=== PATIENT | female | born 1990 | race Caucasian/White ===

== ENCOUNTER 2020-09-24 08:30 | Outpatient (RCR) | payer BC, SELFPAY | END 2020-09-24 23:59 | LOC: DC 08:30 | PROVIDERS: Visit Provider Nurse Practitioner Family | DX: Z71.3 Dietary counseling and surveillance (principal); O24.410 Gestational diabetes mellitus in pregnancy, diet controlled; Z3A.00 Weeks of gestation of pregnancy not specified; O99.210 Obesity complicating pregnancy, unspecified trimester | CPT/HCPCS: 97802; G0108 ==

== ENCOUNTER 2020-10-10 11:00 | Outpatient (RCR) | payer BC, SELFPAY | END 2020-10-25 23:59 | LOC: DC 11:00 | PROVIDERS: Visit Provider Nurse Practitioner Family | DX: Z71.3 Dietary counseling and surveillance (principal); O24.410 Gestational diabetes mellitus in pregnancy, diet controlled; Z3A.00 Weeks of gestation of pregnancy not specified ==

== ENCOUNTER 2020-11-01 11:45 | Outpatient (RCR) | payer BC, SELFPAY | END 2020-11-01 23:59 | disposition home or self-care (01) | LOC: DC 11:45 | PROVIDERS: Visit Provider Nurse Practitioner Family | DX: O24.410 Gestational diabetes mellitus in pregnancy, diet controlled (principal); Z3A.00 Weeks of gestation of pregnancy not specified ==

== ENCOUNTER 2020-11-22 01:56 | Inpatient (IN) | payer BC, SELFPAY ==
[2020-11-22] VITALS (15 sets, daily range): BP systolic 106–135; BP diastolic 54–64; PULSE 69–88; RESP 16–18; TEMP 36.3–36.9; O2SAT 96–98; BMI 34.9
[2020-11-22] MEDS: Oxytocin 10 UNITS/ML Vial IM (02:15)
--- NOTE | 2020-11-22 02:27 | PCM.OPRPT ---
Problem List (1) 38 weeks gestation of Status: Acute (2) GDM, class A2 Status: Acute (3) Precipitous delivery, delivered (current hospitalization) Status: Acute Report of Operation Date of Procedure: 11/22/20 Pre-Operative Diagnosis: Spontaneous active labor, term gestation Post-Operative Diagnosis: same, live female Surgery/Procedure Performed:: Vaginal Delivery Maternal Presentation: Active Labor, Spontaneous Rupture of Membranes Patient is a at 38.0 weeks gestation that arrived to unit in spontaneous active labor. Patient reported leaking fluid, vaginal bleeding and back pain most of the night. Positive movement. Amniotic Membrane Rupture Type: Spontaneous at home Rupture of Membrane time: Unsure Amniotic Fluid Description: Clear Final TISHA: 12/06/20 Gestational age: 38 Weeks and 0 Days Date of Procedure: 11/22/20 Pre-Operative Diagnosis: Term, spontaneous, active labor Post-Operative Diagnosis: precipitous delivery, term live female Surgery/ Procedure Performed: Spontaneous Vaginal Delivery Type of Anesthesia: None Description of Procedure: Patient is a at 38.0 weeks gestation that arrived to unit in spontaneous, active labor with urge to bear down. Patient transferred to bed and began pushing. Precipitous delivery of infant. Vigorous female placed on maternal abdomen and attended to by nursing staff. 3 vessel cord clamped and cut after 2 minutes by FOB. placed skin to skin with patient. Pitocin IM 10 mg X1 given for active management of third stage of labor. Placenta delivered spontaneously and intact. Vagina and perineum intact after inspection. Fundus firm and 1 below U. EBL 200 cc. APGARS 8/9. Patient bonding with infant. Dr. Malik notified of delivery. Presentation: Vertex, MARTÍN Placental Delivery Description: Spontaneous Placenta Disposition: [facility] Cord Vessel Description: 3 Vessels Cord Entanglement: None Estimated Blood Loss: 200 A gender: Female (1 minute): 8 (5 minute): 9 Episiotomy Description: None Laceration: None Medications given after delivery: - - IM pitocin Complications: None
--- NOTE | 2020-11-22 02:39 | PCM.HP.OB ---
- Problem List (1) 38 weeks gestation of Status: Acute (2) GDM, class A2 Status: Acute (3) Precipitous delivery, delivered (current hospitalization) Status: Acute History Date of Admission: 11/22/20 Final TISHA: 12/06/20 Gestational age: 38 Weeks and 0 Days History of this : This is a 30 year-old, G [], P [], at weeks gestational age. Smoking Status: Former smoker Number of Fetus(es): 1 History Past Pregnancies: Past Pregnancies Delivery Date Name GA/ Weeks Outcome Route Wt Infant Sex Labor Length Anesthesia Delivery Location Provider FOB Labs: A+ Rubella- immune HB- neg HC- neg RPR- NR HIV- NR GC/CH- neg GBS- neg but untreated GDM A2- well controlled COVID- 19 unknown Expected Infant Delivery Method: Spontaneous Vaginal Review of Systems Constitutional: Denies: Chills, Fever, Weight Change HEENT: Denies: Head Aches, Sinus Congestion, Sinus Drainage Cardiovascular: Denies: Chest Pain, Palpitations Respiratory: Denies: Cough, Shortness of breath at rest, Sputum production Gastrointestinal: Denies: Abdominal Pain, Nausea, Vomiting Genitourinary: Denies: Dysuria Neurological: Denies: Focal weakness, Numbness, Tingling Physical Exam Vitals: Vital Signs Temp Pulse BP 98.5 F 81 116/61 11/22/20 02:30 11/22/20 02:33 11/22/20 02:33 General: Alert, Oriented x3 HEENT: Atraumatic Cardiovascular: Regular rate Lungs: Normal air movement Abdomen: Soft, Non Tender Neurological: Cranial nerves II-XII grossly intact Assessment/Plan All Active Problems 38 weeks gestation of (Acute) GDM, class A2 (Acute) Precipitous delivery, delivered (current hospitalization) (Acute) This is a 30 year-old, G [3], P [1], at 38.0 weeks gestational age that arrived to unit in spontaneous, active labor. She was completely dilated and bearing down. Admitted to labor and delivery Routine labs Pitocin IM 10 mg x1 after delivery due to no IV access GDM A2- fasting glucose tomorrow GBS- negative but untreated Dr. Malik notified of admission, delivery and is collaborating physician
[2020-11-22 03:12] LABS: Absolute Lymphocyte Count 0.55 X10^3/uL (0.83-4.51); Basophil# 0.03 X10^3/uL; Basophil% 0.2 % (0-1); Eosinophil# 0.01 X10^3/uL; Eosinophils% 0.1 % (0-5); Hematocrit 36.5 % (37-47); Hemoglobin 12.3 g/dL (12.0-15.0); Lymphocyte # 0.55 X10^3/ul (4.0); Lymphocyte % 3.2 % (19-41); Mean Corp Hgb Conc 33.7 g/dL (32-36); Mean Corpuscular Hgb 32.5 pg (27.0-32.0); Mean Corpuscular Volume 96.3 fL (81-99); Mean Platelet Vol. 10.4 fl (6.2-12.0); Monocyte% 3.5 % (0-10); NRBC Flagged by Analyzer 0 % (0-5); Neutrophil # 15.97 X10^3/uL (2.7-7.7); Neutrophil % 92.4 % (47-70); POSITIVE DIFFERENTIAL YES; Platelet Count 172 K/mm3 (150-450); RBC Distribution Width CV 13.3 % (11.6-14.6); RBC Distribution Width SD 47.2 fl (35.1-43.9); Red Blood Count 3.79 M/mm3 (4.2-5.4); White Blood Count 17.3 K/mm3 (4.4-11.0)
[2020-11-22 03:13] LABS: Differential Indicated SCAN CRITERIA MET
[2020-11-22 04:21] LABS: Bedside Glucose 140 mg/dL (70-110)
[2020-11-22] MEDS: Ibuprofen 600 MG Tablet PO ×2 (04:23→18:24)
[2020-11-22 05:31] LABS: Amphetamine Urine VISTA NEGATIVE (<1000 ng/mL); Barbiturate Urine VISTA NEGATIVE (< 200 ng/mL); Benzodiazepine Urine VISTA NEGATIVE (< 200 ng/mL); Cocaine Urine VISTA NEGATIVE (< 300 ng/mL); Ecstacy Urine VISTA NEGATIVE (< 500 ng/mL); Methadone Urine VISTA NEGATIVE (< 300 ng/mL); PCP Urine VISTA NEGATIVE (< 25 ng/mL); THC Urine VISTA NEGATIVE (< 50 ng/mL); Vista UDS pH Range 5
[2020-11-23 02:50] VITALS: BP 110/50; PULSE 78; RESP 16; TEMP 36.8; O2SAT 98
[2020-11-23] MEDS: Ibuprofen 600 MG Tablet PO (04:20)
[2020-11-23 04:26] LABS: Bedside Glucose 76 mg/dL (70-110)
[2020-11-23 08:07] VITALS: BP 104/70; PULSE 68; RESP 16; TEMP 36.3; O2SAT 97
--- NOTE | 2020-11-23 11:31 | PCM.PROGNOTE ---
Patient Problems: Active and Suspected Problems 38 weeks gestation of (Acute) GDM, class A2 (Acute) Precipitous delivery, delivered (current hospitalization) (Acute) Subjective: Doing well per patient and nursing staff. Ambulating and taking p.o. without difficulty. Voiding and had bowel movement no complications. Breast-feeding without any concerns. Denies any chest pain or shortness of breath, leg pain or increased vaginal bleeding. Pain controlled. Discharge home today. - Physical Exam Vitals/I&O's: Vital Signs Temp Pulse Resp BP Pulse Ox 97.3 F L 68 16 104/70 97 11/23/20 08:07 11/23/20 08:07 11/23/20 08:07 11/23/20 08:07 11/23/20 08:07 Oxygen Delivery Method Room Air Weight: 197 lb 8.547 oz Body Mass Index (BMI) 34.9 Intake and Output for Last 24 Hours 11/21/20 11/22/20 11/23/20 23:59 23:59 23:59 Output Total 300 / 300 Balance -300 / -300 General: Alert, Oriented x3, Cooperative HEENT: Atraumatic, Normocephalic Neck: Trachea Midline Lungs: Clear to auscultation, Normal air movement, No rhonchi, No wheeze Cardiovascular: Regular rate, Regular Rhythm, No murmurs Abdomen: Bowel Sounds Present, Soft Extremities: No edema Psych/Mental Status: Normal Affect, Appropriate Laboratory Results 11/23/20 04:22: POC Glucose 76 Current Medications Acetaminophen (Acetaminophen 500 Mg Tablet) 1,000 mg PO Q8H PRN PRN PRN Reason: Pain Score 1-10 Al Hydroxide/Mg Hydroxide (Mag Hydrox/Al Hydrox/Simeth 30 Ml Udc) 15 - 30 ml PO Q4H PRN PRN PRN Reason: INDIGESTION Bisacodyl (Bisacodyl 10 Mg Suppository) 10 mg RECTAL UD PRN PRN Reason: If no BM Citric Acid/Sodium Citrate (Sodium Citrate/Citric Acid 30 Ml Udc) 30 ml PO X1 PRN PRN Reason: Section Dextrose (Dextrose 50%-Water 25 Gm/50 Ml Disp.Syrin) 0 gm IV X1 PRN; Protocol PRN Reason: Hypoglycemia Dibucaine (Dibucaine 30 Gm Tube) 1 applic TOPICAL TID PRN PRN; Protocol PRN Reason: Discomfort Glucagon (Glucagon 1 Mg/Ml Syringe) 1 mg IM .X1 PRN PRN Reason: Hypoglycemia Hydrocortisone (Hydrocortisone 2.5% Crm) 1 applic TOPICAL TID PRN PRN; Protocol PRN Reason: Discomfort Ibuprofen (Ibuprofen 600 Mg Tablet) 600 mg PO Q6H PRN PRN PRN Reason: Pain Score 1-10 Last Admin: 11/23/20 04:20 Dose: 600 mg Documented by: Methylergonovine Maleate (Methylergonovine 0.2 Mg/Ml Ampul) 0.2 mg IM X1 PRN PRN Reason: Excess bleeding/uterine atony Oxytocin (Oxytocin 10 Units/Ml Vial) 10 units IM X1 TELMA Last Admin: 11/23/20 03:41 Dose: Not Given Documented by: Senna/Docusate Sodium (Senna/Docusate Sodium 1 Tablet) 1 - 2 tablet PO DAILY PRN PRN PRN Reason: Constipation Simethicone (Simethicone 80 Mg Tablet) 80 mg PO PCHS PRN PRN Reason: Indigestion/Stomach pain Medical Necessity - Tobacco Use Smoking Status: Former smoker Assessment/Plan All Active Problems 38 weeks gestation of (Acute) GDM, class A2 (Acute) Precipitous delivery, delivered (current hospitalization) (Acute) A: day #1 GDM A1 P: 1. Routine and discharge instructions 2. Declines prescription for use [id number] ibuprofen and Tylenol 3. Reviewed LARC options for control with breast-feeding, at this time patient declines and discuss further at visit 4. Fasting sugar 76 and normal. Will complete 2-hour GTT before 12 weeks 5. Discharge home today
--- NOTE | 2020-11-23 11:39 | DCINST_ITS ---
Discharge Diet: No Restrictions Discharge Activity: Return to Normal Activity, May not drive while taking narcotic pain medications., May Shower May resume sexual activity in: 4-6 weeks Additional Activity Instructions:: Nothing in the vagina for 4-6 weeks. You may return to work/school in 6 weeks. Call your doctor if your incision/area has: Continuous Slow Oozing, Sudden Increased Bleeding, Increased Pain/ Swelling, Increased Redness, Foul Smelling Discharge Call your doctor if you observe: Fever of 101 or Higher, Inability to urinate, Inability to have a bowel movement, Using more than one pad per hour, Shortness of breath, Chest pain, Increased palpitations (irregular heartbeat), Calf discomfort, Uncontrolled pain Additional Instructions: If you experience any of the following, contact your healthcare provider. * Bleeding that soaks a pad every hour for 2 hours * Fever 100.4 or higher * Unrelieved incision or abdominal pain * Swelling, redness, discharge or bleeding from your incision or episiotomy site * Your incision begins to separate * Problems urinating (including inability to urinate or burning while urinating). * Visual changes * Severe headache * Flu-like symptoms * Pain or redness in one of both of your breasts * Pain, warmth, tenderness or swelling in your legs, especially the calf area * Frequent nausea and vomiting * Symptoms of depression or anxiety If you experience any of the following, call 911 or go to the nearest Emergency Room. * Chest pain * Problems breathing * Seizure activity * Partial or complete paralysis of a body part, slurred speech, weakness or drooping of the face, or a sudden inability to walk or hold your balance Allergies/Adverse Reactions: Allergies No Known Allergies Allergy (Verified 11/22/20 03:15) Medications to take at Discharge Pnv No.95/Ferrous Fum/Folic AC [ Formula Tablet] 1 tab PO DAILY 11/22/20 Ibuprofen [Motrin] 600 mg PO Q6H PRN PRN tab 11/23/20 Please Follow Up With: Jacey Ardon CNM When: Call to make an appointment with your doctor in 2 weeks and 6 weeks. If you had elevated Blood Pressure or 4th degree laceration you will need to be seen in 2 weeks. Test Results: Test results from this visit will be discussed in further detail at your follow- up appointment, if applicable.
--- NOTE | 2020-11-23 13:34 | CASEMGMT ---
Social Work Assessment Labor and Delivery Unit Date of Referral: 11/22/2020 Time of Referral: 15:43 Referred By: Daily Malik Date of Intervention: 11/23/2020 Time of Intervention: 13:01 Reason for Referral: Mother of baby (MOB) with history of Depression/Anxiety History obtained from: MOB, Chart, and Father of baby (FOB). Household composition: MOB (Mary Troy), FOB (Rito Canales), this (Alice Canales) and four other children between the ages of 6 and 11. Of the four other children three of them do not share maternity with this infant but have same FOB. MOB?s first child does not share paternity with this infant. FOB has full custody of three children (all males) and MOB has full custody of first child, also a male. This is first that MOB and FOB have had together. was not avoided and accepted. With this infant there will now be 5 children in the home. Patient's parent/guardian status: MOB and FOB have been together for 5 years. MOB and FOB were planning to be in 2019 but due to COVID had to change wedding plans and hope to get in the next year or so. MOB and FOB also working towards building a home. Medical History: MOB with history of prior to this . MOB with spontaneous vaginal delivery on 11/22/2020. MOB with history of Depression, Anxiety and Depression (PPD). MOB with appropriate care. Female born with apgars of 9 and 9 at 1min and 5min. birthweight of 3075g. MOB plans to breastfeed infant. Infant to follow with [facility] for pediatric care in [facility]. Educational Status: MOB and FOB deny any issues with comprehension or understanding. Financial Status: MOB and FOB are both employed full-time. MOB to have twelve weeks of maternity leave and FOB to have the next two weeks off. MOB and FOB deny any financial concerns. Supplies: MOB reports to have all needed infant supplies including a car seat and crib. Childcare/Caregiver(s): MOB to be primary caregiver until returning to work. Family is able to assist with childcare. MOB reports that other children in the home are currently with MOB?s mother. Transportation: Denies any issues. Programs/Agencies Involved: No current community program/agency involvement. Children Services/Legal Issues: Denies any history of children services or current legal issues/concerns. Mental Health History: MOB reports to have history of Anxiety, Depression and Depression. MOB reports to have been taking Zoloft to manage mental health prior to discovering and to have discontinued taking Zoloft during the per own choice. MOB reports to currently be ?feeling okay.? MOB reports to have a primary care physician that prescribes MOB Zoloft and can begin medication management of mental health again in the future if needed. MOB reports to be to feel safe and comfortable speaking with FOB, Family and medical providers about MOB?s mental health and if MOB would need any support. MOB denies any history of suicidal thoughts, plans, or intents. MOB denies any self-harming behavior. MOB reports history of counseling services but not active counseling. MOB reports that counseling was ?not a good fit.? MOB reports to use own coping skills when needed. This social service director able to engage in conversation with MOB about signs and symptoms of PPD. Substance Use History: MOB and FOB deny any THC, Prescription drug abut, Heroin, Meth, Cocaine, or Tobacco use/abuse. MOB with history of tobacco use but not currently. Maternal and Drug Screens: MOB with negative tox screen on admission to labor and delivery unit. PHQ9: MOB did not trigger PHQ-2 Family/Social Stressors: MOB and FOB able to identify the stressor of attempting to build a house and get . MOB and FOB appear to be managing stressors well and are both able to speak openly about feelings/thoughts with this social service director. Support Systems: Family for support. Depression and Anxiety/Shaken Baby/Safe Sleeping: MOB provided with resources for PPD, Safe Sleeping, [facility] resources, and Shaken Baby. ASSESSMENT: This social service director met with MOB and FOB in room. Introduced self and social service director role. MOB agreeable to speak with this social service director and provided verbal permission for this social service director to speak openly with FOB present. FOB holding infant during conversation and appropriate when infant began to cry. MOB and FOB both report to have a connection with infant. MOB with appropriate affect and engaged in conversation with this social service director. MOB denies any needs/concerns on returning to home. PLAN: to discharge to home with MOB, FOB and four other siblings. No other services requested or indicated. Maria E Alonso MSW, [place]
[2020-11-23 13:53] VITALS: BP 119/71; PULSE 72; RESP 18; TEMP 36.2; O2SAT 97
== END 2020-11-23 14:30 | disposition home or self-care (01) | DRG 807 ==
LOC: WPOUT 02:02 → WP 02:02 → WPOUT 02:10 → WP 02:10
PROVIDERS: Admitting Provider Advanced Practice Midwife; Referring Provider Advanced Practice Midwife; Visit Provider Advanced Practice Midwife
DX: O24.420 Gestational diabetes mellitus in childbirth, diet controlled (principal); O62.3 Precipitate labor; Z3A.38 38 weeks gestation of pregnancy; Z87.891 Personal history of nicotine dependence; Z37.0 Single live birth
CPT/HCPCS: 59025; 59050; 80307; 82962; 85025; 86850; 86900; 86901; 99218; G0378